=== PATIENT | male | born 1980 | race Caucasian/White ===

== ENCOUNTER 2019-08-24 00:34 | Emergency (ER) | payer MEDICAID ==
[~2019-08-24] VITALS: Ht 177.8 cm; Wt 90.0 kg
[2019-08-24] MEDS ORDERED: acetaminophen 325mg tablet PO ONE (01:00)
[2019-08-24 02:41] LABS: MONOTEST NEGATIVE (Neg)
[2019-08-24 03:22] VITALS: BP 149/90
[2019-08-25] MEDS ORDERED: CEPH-572 PO (15:57)
== END 2019-08-24 03:24 | disposition home or self-care (01) ==
LOC: ER 00:35
DX: R59.0 Localized enlarged lymph nodes (principal); M79.10 Myalgia, unspecified site; R50.9 Fever, unspecified; R51 Headache
CPT/HCPCS: 36415; 86308; 87502; 87503; 99283

== ENCOUNTER 2019-08-25 12:07 | Emergency (ER) | payer MEDICAID ==
[~2019-08-25] VITALS: Ht 177.8 cm; Wt 200.0 kg
[2019-08-25] MEDS ORDERED: normal saline 1000ML IV soln IVB ONE (13:55)
[2019-08-25] MEDS ORDERED: ketorolac tromethamine 15mg/ml inj. IV ONE (13:55)
[2019-08-25] MEDS ORDERED: normal saline 1000ml 1,000 ML IV ONE (14:45)
[2019-08-25 15:12] LABS: BASOPHILS # (AUTO) 0.1 X10'3 (0-0.2); BASOPHILS % (AUTO) 0.6 % (0-1); EOSINOPHILS % (AUTO) 0.4 % (0-6); HEMATOCRIT 45.3 % (42.0-52.0); HEMOGLOBIN 15.6 g/dl (14.0-17.9); LYMPHOCYTES % (AUTO) 22.8 % (21-51); MEAN CORPUSCULAR HEMOGLOBIN 29.8 PG (27.0-31.0); MEAN CORPUSCULAR HGB CONC 34.4 g/dL (33.0-36.5); MEAN CORPUSCULAR VOLUME 86.8 FL (78-98); MEAN PLATELET VOLUME 7.4 FL (7.4-10.4); MONOCYTES # (AUTO) 0.8 X10'3 (0-0.9); MONOCYTES % (AUTO) 9.2 % (2-12); NEUTROPHILS # (AUTO) 5.9 X10'3 (1.8-7.7); PLATELET COUNT 267 X10'3 (140-440); RED BLOOD COUNT 5.22 X10'6 (4.70-6.10); RED CELL DISTRIBUTION WIDTH 13.6 % (11.5-14.5); WHITE BLOOD COUNT 8.8 X10'3 (4.5-11.0)
[2019-08-25 15:30] LABS: ALANINE AMINOTRANSFERASE 32 U/L (12-78); ALBUMIN 3.7 G/DL (3.4-5.0); ALBUMIN/GLOBULIN RATIO 1.2 (1.1-1.5); ALKALINE PHOSPHATASE 74 IU/L (46-116); ANION GAP 7 (8-16); ASPARTATE AMINO TRANSFERASE 19 U/L (10-37); BILIRUBIN,TOTAL 0.5 MG/DL (0.1-1.0); BLOOD UREA NITROGEN 12 MG/DL (7-18); BUN/CREATININE RATIO 12.6 (5.4-32.0); CALCIUM 8.6 MG/DL (8.5-10.1); CHLORIDE 108 MMOL/L (99-107); CREATININE 0.95 MG/DL (0.60-1.10); GLUCOSE 103 MG/DL (70-104); POTASSIUM 4.3 MMOL/L (3.5-5.1); SODIUM 142 MMOL/L (135-145); TOTAL CARBON DIOXIDE 27.5 MMOL/L (24-32); TOTAL PROTEIN 6.7 G/DL (6.4-8.2); eGFR 89 ML/MIN
[2019-08-25 15:45] VITALS: BP 139/93
[2019-08-25] MEDS ORDERED: CEPH-572 PO (15:57)
== END 2019-08-25 16:08 | disposition home or self-care (01) ==
LOC: ER 12:07
DX: B34.9 Viral infection, unspecified (principal); R51 Headache; R50.9 Fever, unspecified; M54.2 Cervicalgia; L73.9 Follicular disorder, unspecified; Z79.899 Other long term (current) drug therapy
CPT/HCPCS: 36415; 70450; 80053; 85025; 96374; 99285; J1885; J7030

== ENCOUNTER 2020-08-13 09:51 | Emergency (ER) | payer MEDICAID ==
[~2020-08-13] VITALS: Ht 177.8 cm; Wt 97.7 kg
[2020-08-13 10:08] VITALS: BP 139/103
[2020-08-13] MEDS ORDERED: proparacaine 0.5% ophthalmic drops 15ml EACHEYE ONE (10:15)
--- NOTE | 2020-08-13 10:23 | NUR ---
LEFT EYE IRRITATION X 2 DAYS, AGGRAVATED BY WEARING CONTACT LENS. REDNESS, LIGHT SENSITIVITY, PAIN REPORTED.
[2020-08-13] MEDS ORDERED: ERYT1OIN6 EACHEYE (10:31)
== END 2020-08-13 10:51 | disposition home or self-care (01) ==
LOC: ER 09:52
DX: H10.32 Unspecified acute conjunctivitis, left eye (principal); H57.12 Ocular pain, left eye; H53.142 Visual discomfort, left eye; Z79.2 Long term (current) use of antibiotics
CPT/HCPCS: 99283